=== PATIENT | female | born 1945 | race Asian ===

== ENCOUNTER 2018-08-10 13:40 | Observation (INO) | payer MEDICARE, OTHER ==
[~2018-08-10] VITALS: Ht 152.4 cm; Wt 65.0 kg
[~2018-08-10 13:40] MED LIST: AMLODIPINE5 MG PO; BENICAR PO; BUFFERED ASPIR325 M1 PO; CLOPIDOGREL PO; COLACE 100100 MG/CAP PO; COZAAR100 MG PO; GABAPENTIN100 M1 PO; HCTZ 25MG25 MG PO; LISINOPRIL20 MG PO; LORTAB 5/500 501 TAB PO; MULTIPLE VITAMI1 CAP PO; MVI PO; PLAVIX 75MG TAB75 MG PO; RANITIDINE150 MG PO; TYLENOL 500MG500 MG PO; TYLENOL PO; ZANTAC 150150 MG PO; ZESTRIL30 MG PO; ZOCOR 40MG40 MG PO; ZOCOR40 MG PO; ZYRTEC10 MG PO
[2018-08-10 14:06] LABS: BASO % 0.2 % (0.0-2.0); EOS % 0.4 % (0-4.0); GRAN # 6.6 (1.4-6.5); GRAN % 78.8 % (42.2-75.2); LYMPH # 1.2 (1.2-3.4); LYMPH % 14.7 % (20.0-51.0); MEAN CELL VOLUME 72 fl (80.0-100.0); MEAN CORPUSCULAR HGB CONC 30 g/dl (33.0-37.0); MEAN PLATELET VOLUME 12.7 fl (7.4-10.4); MONO # 0.5 (0.1-0.6); MONO % 5.7 % (1.7-9.3); PLATELET COUNT 213 K/mm3 (130-400); RED BLOOD COUNT 3.88 M/mm3 (4.10-5.30); REDCELL DISTRIBUTION WIDTH-CV 14.2 % (11.5-14.5)
[2018-08-10 14:07] LABS: HEMOGLOBIN 8.5 g/dl (12.5-16.0); MEAN CORPUSCULAR HEMOGLOBIN 22 pg (27.0-31.0)
[2018-08-10 14:09] LABS: PROTHROMBIN TIME 11.2 SECONDS (9.7-12.8)
[2018-08-10 14:12] LABS: PARTIAL THROMBOPLASTIN TIME 26.8 SECONDS (26.0-37.0)
[2018-08-10 14:18] LABS: ALANINE AMINOTRANSFERASE 27 U/L (9-52); ALBUMIN 4.2 gm/dL (3.5-5.0); ALKALINE PHOSPHATASE 54 U/L (50-136); ANION GAP 12 mmol/L (7-16); AST,SGOT 39 U/L (15-37); BILIRUBIN,TOTAL 0.5 mg/dL (0.0-1.0); BLOOD UREA NITROGEN 40 mg/dL (7-17); C-REACTIVE PROTEIN < 0.5 mg/dL (0.0-0.9); CALCIUM 10.4 mg/dL (8.4-10.2); CARBON DIOXIDE 21 mmol/L (22-30); CHLORIDE 108 mmol/L (98-107); CREATININE, serum 1.64 (0.52-1.25); GLUCOSE 105 mg/dL (74-106); LIPASE 381 U/L (23-300); POTASSIUM 4.1 mmol/L (3.4-5.0); SODIUM 141 mmol/L (137-145); TOTAL PROTEIN 7.3 gm/dL (6.4-8.2)
[2018-08-10 14:27] LABS: TROPONIN-I 0.017 ng/mL (0.000-0.035)
[2018-08-10 14:35] LABS: COLLECTION METHOD CLEAN CATCH
[2018-08-10 14:47] LABS: MUCOUS Present /lpf; PH 5 (5-8); SQUAMOUS EPITHELIAL None Seen /hpf; URINE APPEARANCE Clear; URINE BACTERIA None Seen /hpf; URINE BILIRUBIN Negative (NEGATIVE); URINE BLOOD Negative (NEGATIVE); URINE COLOR Yellow; URINE GLUCOSE Negative (NEGATIVE); URINE KETONE Negative (NEGATIVE); URINE LEUKOCYTE ESTERASE Negative (NEGATIVE); URINE NITRATE Negative (NEGATIVE); URINE PROTEIN(semi-quant) Negative (NEGATIVE); URINE RBC 0-2 /hpf; URINE UROBILINOGEN Negative (NEGATIVE)
[2018-08-10] MEDS ORDERED: TOPROL XL100 MG PO (19:18)
[2018-08-10] MEDS ORDERED: GLUCOPHAGE XR500 M1 PO (19:19)
[2018-08-10] MEDS ORDERED: NEURONTIN300 MG/CAP PO (19:20)
[2018-08-10] MEDS ORDERED: LOFIBRA54 MG PO (19:20)
[2018-08-10] MEDS ORDERED: VITAMIN D31000 I1 PO (19:21)
[2018-08-10] MEDS ORDERED: LIPITOR 40MG TA40 MG PO (19:21)
[2018-08-10] MEDS ORDERED: CELEXA 20MG20 MG/TAB PO (19:21)
[2018-08-10] MEDS ORDERED: ASPIRIN 81M81 MG/TA2 PO (19:22)
[2018-08-10 20:29] VITALS: BP 158/65; PULSE 69; TEMP 97.7
[2018-08-10 23:45] VITALS: BP 152/47; PULSE 60; TEMP 99.5
[2018-08-11] MEDS ORDERED: AVAPRO300 M1 PO (00:50)
[2018-08-11 04:00] VITALS: BP 146/51; PULSE 64; TEMP 98.6
[2018-08-11 07:15] LABS: BASO % 0.2 % (0.0-2.0); EOS # 0.1 (0.0-0.7); EOS % 1.2 % (0-4.0); GRAN # 3.3 (1.4-6.5); GRAN % 65.6 % (42.2-75.2); LYMPH # 1.2 (1.2-3.4); LYMPH % 23.1 % (20.0-51.0); MEAN CELL VOLUME 73 fl (80.0-100.0); MEAN CORPUSCULAR HGB CONC 31 g/dl (33.0-37.0); MONO # 0.5 (0.1-0.6); MONO % 9.7 % (1.7-9.3); PLATELET COUNT 181 K/mm3 (130-400); RED BLOOD COUNT 3.33 M/mm3 (4.10-5.30); REDCELL DISTRIBUTION WIDTH-CV 14.3 % (11.5-14.5); RETIC # 0.05 M/mm3 (0.02-0.16); RETIC % 1.6 % (0.5-3.52)
[2018-08-11 07:24] LABS: CALCIUM 9.1 mg/dL (8.4-10.2); CREATININE, serum 1.44 (0.52-1.25); POTASSIUM 3.9 mmol/L (3.4-5.0)
[2018-08-11 07:28] LABS: HEMATOCRIT 24.3 % (37.0-47.0); HEMOGLOBIN 7.4 g/dl (12.5-16.0); MEAN CORPUSCULAR HEMOGLOBIN 22 pg (27.0-31.0)
[2018-08-11 08:51] VITALS: BP 182/53; PULSE 57; TEMP 97.8
[2018-08-11 12:02] VITALS: BP 143/53; PULSE 58; TEMP 98.1
[2018-08-11 16:39] VITALS: BP 138/50; PULSE 59; TEMP 97.8
[2018-08-11 19:05] VITALS: BP 175/50; PULSE 66; TEMP 98.5
[2018-08-12 00:22] VITALS: BP 169/64; PULSE 66; TEMP 98.2
[2018-08-12 04:22] VITALS: BP 174/66; PULSE 63; TEMP 98.1
[2018-08-12 06:59] LABS: BASO % 0.2 % (0.0-2.0); EOS # 0.1 (0.0-0.7); EOS % 1.9 % (0-4.0); GRAN # 2.9 (1.4-6.5); GRAN % 55.5 % (42.2-75.2); LYMPH # 1.7 (1.2-3.4); LYMPH % 32.6 % (20.0-51.0); MEAN CELL VOLUME 73 fl (80.0-100.0); MEAN CORPUSCULAR HGB CONC 30 g/dl (33.0-37.0); MONO # 0.5 (0.1-0.6); MONO % 9.6 % (1.7-9.3); PLATELET COUNT 157 K/mm3 (130-400); RED BLOOD COUNT 3.94 M/mm3 (4.10-5.30); REDCELL DISTRIBUTION WIDTH-CV 14.5 % (11.5-14.5)
[2018-08-12 07:00] LABS: CALCIUM 9.3 mg/dL (8.4-10.2); CREATININE, serum 1.36 (0.52-1.25); POTASSIUM 3.5 mmol/L (3.4-5.0)
[2018-08-12 07:04] LABS: HEMOGLOBIN 8.7 g/dl (12.5-16.0); MEAN CORPUSCULAR HEMOGLOBIN 22 pg (27.0-31.0)
[2018-08-12 07:05] LABS: HEMATOCRIT 28.6 % (37.0-47.0)
[2018-08-12 07:41] VITALS: BP 160/49; PULSE 58; TEMP 97.6
[2018-08-12] MEDS ORDERED: COLACE 100100 MG/CAP PO (08:24)
[2018-08-12] MEDS ORDERED: MIRALAX238G PO (08:25)
[2018-08-12 11:37] VITALS: BP 137/64; PULSE 68; TEMP 97.4
== END 2018-08-12 18:10 | disposition home or self-care (01) ==
LOC: COL.ER 13:40 → SURG 19:05
PROVIDERS: Emergency Medicine; Nurse Practitioner; Nurse Practitioner Family; ADMIT Student in an Organized Health Care Education/Training Program
DX: N17.9 Acute kidney failure, unspecified (principal); R33.9 Retention of urine, unspecified; K59.00 Constipation, unspecified; I10 Essential (primary) hypertension; E78.5 Hyperlipidemia, unspecified; E11.9 Type 2 diabetes mellitus without complications; I25.10 Atherosclerotic heart disease of native coronary artery without angina pectoris; Z86.73 Personal history of transient ischemic attack (TIA), and cerebral infarction without residual deficits; D50.9 Iron deficiency anemia, unspecified; Z79.84 Long term (current) use of oral hypoglycemic drugs; Z79.82 Long term (current) use of aspirin; Z95.5 Presence of coronary angioplasty implant and graft; Z88.0 Allergy status to penicillin; Z88.5 Allergy status to narcotic agent
CPT/HCPCS: G0378; J1644; J3010; J7030

== ENCOUNTER 2022-05-13 09:34 | Inpatient (IN) | payer MEDICARE, MEDICAID ==
[~2022-05-13] VITALS: Wt 57.1 kg
[~2022-05-13 09:34] MED LIST changes: +APRESOLINE 25MG25 MG PO; +ASPIRIN 81M81 MG/TA2 PO; +AVAPRO300 M1 PO; +BRILINTA90 MG PO; +CATAPRES 0.1MG0.1 MG PO; +CELEXA 20MG20 MG/TAB PO; +DIOVAN320 MG PO; +GLUCOPHAGE XR500 M1 PO; +HCTZ 25MG TAB25 MG PO; +LIPITOR 40MG TA40 MG PO; +LIPITOR 80MG80 MG PO; +LOFIBRA54 MG PO; +MACROBID 1100 MG/CAP PO; +MIRALAX238G PO; +MULTI VITAMINS1 TAB PO; +NEURONTIN300 MG/CAP PO; +NORVASC 10MG10 MG PO; +TOPROL XL 50MG50 MG PO; +TOPROL XL100 MG PO; +VITAMIN D31000 I1 PO
[2022-05-13 10:12] LABS: BASO % 0.3 % (0.0-2.0); EOS # 0.1 K/mm3 (0.0-0.7); EOS % 1.2 % (0.0-4.0); GRAN # 5.6 K/mm3 (1.4-6.5); GRAN % 73.9 % (42.2-75.2); HEMATOCRIT 27.9 % (37.0-47.0); HEMOGLOBIN 8.9 g/dl (12.5-16.0); LYMPH # 1.1 K/mm3 (1.2-3.4); LYMPH % 13.9 % (20.0-51.0); MEAN CELL VOLUME 70 fl (80.0-100.0); MEAN CORPUSCULAR HEMOGLOBIN 22 pg (27-31); MEAN CORPUSCULAR HGB CONC 32 g/dl (33.0-37.0); MEAN PLATELET VOLUME 13.4 fl (7.4-10.4); MONO # 0.8 K/mm3 (0.1-0.6); MONO % 10.4 % (1.7-9.3); PLATELET COUNT 258 K/mm3 (130-400); RED BLOOD COUNT 3.99 M/mm3 (4.10-5.30); REDCELL DISTRIBUTION WIDTH-CV 15.5 % (11.5-14.5)
[2022-05-13 10:28] LABS: ALBUMIN 2.7 gm/dL (3.4-4.8); BILIRUBIN,TOTAL 0.6 mg/dL (0.2-1.2); CALCIUM 8.4 mg/dL (8.4-10.2); CREATININE, serum 1.02 mg/dL (0.57-1.11); POTASSIUM 3.4 mmol/L (3.5-4.5)
[2022-05-13 10:33] LABS: COLLECTION METHOD CATHETER
[2022-05-13 10:45] LABS: TROPONIN-I 0.171 ng/mL (0.00-0.033)
[2022-05-13 10:46] LABS: PH 5.5 (5.0-8.5); URINE APPEARANCE Clear (CLEAR/HAZY); URINE COLOR Yellow (YELLOW); URINE PROTEIN(semi-quant) 2+ (NEGATIVE)
[2022-05-13 10:47] LABS: URINE BLOOD Negative (NEGATIVE); URINE GLUCOSE Negative (NEGATIVE); URINE KETONE 1+ (NEGATIVE); URINE NITRATE Negative (NEGATIVE)
[2022-05-13 10:48] LABS: TSH w REFLEX 0.434 uIU/mL (0.350-4.940)
[2022-05-13 11:17] LABS: MUCOUS Present (NOT PRESENT); SQUAMOUS EPITHELIAL 0-2 /hpf (0-10); URINE BACTERIA None Seen /hpf (NONE SEEN)
[2022-05-13] MEDS ORDERED: CARAFATE 1GM1 G PO (12:13)
[2022-05-13] MEDS ORDERED: FERRO-TIME325 MG PO (12:16)
[2022-05-13] MEDS ORDERED: VITAMINC1000TA (12:17)
[2022-05-13] MEDS ORDERED: ZOFRAN ODT4 MG PO (12:18)
[2022-05-13] MEDS ORDERED: PROTONIX 40MG T40 MG PO (12:18)
[2022-05-13] MEDS ORDERED: PEPCID 20MG TAB20 MG PO (12:19)
[2022-05-13] MEDS ORDERED: APRESOLINE 25MG25 MG PO ×2 (12:19)
[2022-05-13] MEDS ORDERED: CELEXA 20MG20 MG/TAB PO (12:20)
[2022-05-13] MEDS ORDERED: NORVASC2.5 MG PO ×2 (12:20)
[2022-05-13] MEDS ORDERED: LEADER CLE17 GM/Dose PO (12:21)
[2022-05-13] MEDS ORDERED: DULCOLAX STOOL100 MG PO (12:21)
[2022-05-13] MEDS ORDERED: ASPIRIN 81M81 MG/TA2 PO (12:22)
[2022-05-13] MEDS ORDERED: LIPITOR 80MG80 MG PO (12:22)
[2022-05-13] MEDS ORDERED: NEURONTIN300 MG/CAP PO (12:23)
[2022-05-13] MEDS ORDERED: CATAPRES 0.1MG0.1 MG PO (12:23)
--- NOTE | 2022-05-13 13:30 | NUR ---
Patient to room 310 from the ER. Alert, but nonverbal and drowsy. VSS. IV CDI. Right side flacid. Patient positioned for comfort. Nurse unable to orient the patient. Call light within reach. Bed alarm on
[2022-05-13 13:51] VITALS: BP 153/55; PULSE 104; TEMP 99.1
--- NOTE | 2022-05-13 14:20 | NUR ---
Doctor notified that patient is in afib.
[2022-05-13] MEDS ORDERED: COMPLETE MULTI1 TAB PO (15:23)
[2022-05-13] MEDS ORDERED: VITAMIN D31000 I1 PO (15:24)
[2022-05-13 16:00] VITALS: BP 144/56; PULSE 52; TEMP 99
--- NOTE | 2022-05-13 18:23 | NUR ---
SYED Powers notified of decreasing troponin.
[2022-05-13 19:48] VITALS: BP 205/100; PULSE 75; TEMP 99.7
[2022-05-13 20:36] VITALS: BP 192/90
[2022-05-14 00:11] VITALS: BP 204/103; PULSE 124; TEMP 98.4
[2022-05-14 00:41] LABS: PARTIAL THROMBOPLASTIN TIME 32.6 SECONDS (26.0-37.0)
[2022-05-14 03:30] VITALS: BP 149/117; PULSE 113; TEMP 99.6
--- NOTE | 2022-05-14 07:00 | NUR ---
LAB UNABLE TO GET BLOOD RETURN, ATTEMPTS X2 LAB TECHS. MEDICAL CHARGE NURSE ALSO ATTEMPTED AND WAS UNABLE TO GET BLOOD FOR HEPXA. HOSPITALIST NOTIFIED, DISCUSSED PICC LINE PLACEMENT VERSES PALLIATIVE CARE.
--- NOTE | 2022-05-14 07:25 | NUR ---
NURSING ATTEMPTED TO CALL SON, NO ANSWER.
--- NOTE | 2022-05-14 07:30 | NUR ---
PATIENT IS CONFUSED, NON-VERBAL. APPEARS TO BE COMFORTABLE, NO SIGNS OF DISCOMFORT. NOTED ELEVATED B/P OF 149/117, HR OF 113 AND IRREGULAR ON TELE. NPO. IV CARDIZEM GTT AND IV HEPARIN GTT INFUSING INTO PERIPHERAL IV'S PER ORDERS. STILL UNABLE TO OBTAIN AM HEPXA PER PROTOCOL, PROVIDER AWARE AND STAFFING WORKING TO GET LAB. PALLIATIVE CARE CONSULT. DNR. HEAD TO TOE ASSESSMENT COMPLETE. NOTED RIGHT SIDE FLACID, PATIENT IS WEAK. PT/OT/ST CONSULTED. PATIENT HAS EXTENSIVE HX INCLUDING CVA X2, NSTEMI, AND HTN. MOSES TO DD DUE TO URINARY RETENTION WHICH PATIENT ALSO HAS HX OF. STUDENT NURSE ALSO WORKING WITH PATIENT TODAY, SEE CHARTING.
[2022-05-14 08:00] VITALS: BP 154/91; PULSE 93; TEMP 99.8
--- NOTE | 2022-05-14 08:00 | NUR ---
PATIENT'S BUE WERE PLACED IN WARM BLANKETS, PLANT QUALITY MANAGER ATTEMPTED TO GET BLOOD AGAIN WITH NO LUCK. HOSPITALIST TEAM AWARE, WAITING TO HEAR BACK FROM FAMILY.
[2022-05-14 08:29] LABS: CALCIUM 8.9 mg/dL (8.4-10.2); CHOLESTEROL RISK RATIO 5.1; CREATININE, serum 0.9 mg/dL (0.57-1.11)
[2022-05-14 08:47] LABS: TROPONIN-I 0.118 ng/mL (0.00-0.033)
--- NOTE | 2022-05-14 10:35 | NUR ---
SPOKE WITH MEDICAL TEAM AGAIN, HOSPITALIST, EDITOR NEWSPAPER & PALLIATIVE CARE NURSE. HEPXA LAB STILL UNABLE TO OBTAIN AND HEP GTT INFUSING STILL INFUSING, HOSPITALIST AWARE AND NO NEW ORDERS. FAMILY IS NOW HERE AT BEDSIDE. TEAM TO DISCUSS PLAN OF CARE.
--- NOTE | 2022-05-14 11:30 | NUR ---
PALLIATIVE CARE NURSE MEET WITH FAMILY, PATIENT IS NOW COMFORT CARES. PROVIDER TO PUT IN ORDERS.
--- NOTE | 2022-05-14 11:52 | NUR ---
Palliative Care meeting with sons Stan Strange Allen. Pt had previous CVA in 2004, February 2022 and this admit. Stan and Alexandr are DPOA's. Pt is currently DNR. Micah MARTINEZ and myself were also present. I reviewed current status of pt and answered questions that the family had. They all agreed that at this time they did not want to pursue Aggressive Care and they did want Hospice Care. Dr. Malave notified. Micah reviewed options for Hospice and family at present are looking at facilities in [place] to allow more family to be able to visit.
--- NOTE | 2022-05-14 13:19 | NUR ---
Initial visit: Bible Worker went by room on rounds. Pt's family were all gathered in the room. At this time the family is processing steps, they will let us know if they need the cafe associate. Family appreciated the visit. Bible Worker will follow up as needed.
--- NOTE | 2022-05-14 14:06 | NUR ---
ROD[facility] charting reviewed, agree with documentation. CHARLENE Macdonald Clinical Instructor
--- NOTE | 2022-05-14 16:20 | NUR ---
Laborer [employer] met with Marisol at bedside to conduct Care Managment Assessment and discuss discharge planning. Patient was verbally unresponsive with eyes open. SW introduced self and informed Patient that this SW would contact her son, Stan P:[phone] to conduct Care Managment Assessment. JUAN contacted Stan via phone. Levi reported that he was unaware of her addmittance to the hospital. Levi reported that he works nights and that he rests during the day, inthe case that treatment team needs to contact him. Levi is Patient's DPOA with Michael as the secondary. DPOA verrified and in chart. Patient lives in [facility] prior to admission. Patient needed support with ALD/IADLs prior to admission with a baseline speech reported to be simple acknowledgments. Patient is established with [facility] ESTEVEZ and Patrick for health insurance and is established with PCP Dr. Nevarez. Family reports Medicare coverage. SW will contact Finance department to lisbet. Patient was reported to not use O2, endorsing DME/wheelchair at [facility]. JUAN collaborated with ITALO Gonzalez to conduct Pallative Care Consult. Patient's family was present with both Stan and Michael (DPOAs) present. Family collaborated and decided to transition Patient to pallative care while inpatient with the intention of discharging to LTC/Hospice in [place], [place] where Michael lives in order to further support Patient while recieving jail care. JUAN contacted the [facility] nursing homes and [facility] for bed availability and fax number information: [facility] reported no beds available. [facility] reported beds available, . JUNA faxed referral documents. [facility] reported beds available. On review of chart reported Patient does not meet criteria for admission to their inpatient hospice house. [facility] reports semi-private room available, Fax number [phone]. Referral documents sent. JUAN informed Michael of updated referral information and will follow. Discharge Plan: LTC with Hospice. Placement pending.
--- NOTE | 2022-05-15 12:31 | NUR ---
Initial visit; Patient looked at [employer] [facility] [employer] though wasn't responsive. Territory Manager General Sales offered God's blessings and the sign of the cross.
--- NOTE | 2022-05-15 14:31 | NUR ---
Shift assessment is done this morning. Patient is nonverbal and in paliative care. Patient shows no sign of pain or discomfort throughout the morning till now. She ate one puding in the morning and 30% of her lunch. Will continue to monitor.
[2022-05-15] MEDS ORDERED: ZOFRAN ODT4 MG PO (15:27)
[2022-05-15] MEDS ORDERED: KEPPRA1000 MG PO (15:28)
[2022-05-15] MEDS ORDERED: ROXANOL 20MG20 MG/ML PO (15:28)
--- NOTE | 2022-05-15 16:30 | NUR ---
Patient is discharge to [facility]. Patient shows no pain or discomfort at this time. Report is given to the AVCV NURSE.
--- NOTE | 2022-05-16 08:35 | NUR ---
Late Entry from 05-15-22 Social Worer collaborated with Patient's Family to follow-up on placement for LTC/Hospice. Family agreed to send Patient to [facility] in [place] should placment not be established prior to 1330 this afternoon.JUAN worker with [facility] staff to verify approved ROGERS plan. It was verrified and added to Patient's chart. JUAN coordinated with [facility] in [place], [place] who reported to have a bed available. Agency denied after initial acceptence due to Patient not having a secondary Payer source. JUAN collaborated with [facility] to keep them up to date due to PAtient being established with [facility] who reports to accept Patient back with hospice care. Due to the initial acceptence from [facility], Family reported to [facility] that Patient will not be transfering to them. Patient is to discharge to [facility] with hospice. JUAN contacted [facility] in order to referr Patient to their services. [facility] reported to accept Patient and agreed to admit to hospice care on 05-16-22. Discharge orders were faxed to [facility] and [facility] care. non-emergent EMS was scheduled for 1600 on 05-15-22 through [facility].
== END 2022-05-15 16:00 | DRG 64 ==
LOC: COL.ER 09:34 → MEDICAL 13:17
PROVIDERS: Emergency Medicine; Student in an Organized Health Care Education/Training Program; ADMIT Student in an Organized Health Care Education/Training Program
DX: I63.9 Cerebral infarction, unspecified (principal); G93.41 Metabolic encephalopathy; I69.351 Hemiplegia and hemiparesis following cerebral infarction affecting right dominant side; Z66 Do not resuscitate; Z20.822 Contact with and (suspected) exposure to COVID-19; I25.10 Atherosclerotic heart disease of native coronary artery without angina pectoris; E11.22 Type 2 diabetes mellitus with diabetic chronic kidney disease; N18.9 Chronic kidney disease, unspecified; Z87.440 Personal history of urinary (tract) infections; R29.700 NIHSS score 0; I12.9 Hypertensive chronic kidney disease with stage 1 through stage 4 chronic kidney disease, or unspecified chronic kidney disease; I48.91 Unspecified atrial fibrillation; E78.5 Hyperlipidemia, unspecified; D64.9 Anemia, unspecified; I25.2 Old myocardial infarction; Z23 Encounter for immunization; Z51.5 Encounter for palliative care; Z95.5 Presence of coronary angioplasty implant and graft; Z88.5 Allergy status to narcotic agent; Z88.0 Allergy status to penicillin; Z79.82 Long term (current) use of aspirin
CPT/HCPCS: C9113; J0696; J1644; J1650; J1953; J3480; Q9967